=== PATIENT | male | born 2000 | race Caucasian/White ===

== ENCOUNTER 2018-08-08 22:04 | Emergency (ER) | payer BC ==
[2018-08-09 00:51] LABS: ADD MAN DIFF? NO
[2018-08-09] MEDS: ONDANSETRON 4 MG INJ IV (00:51)
[2018-08-09] MEDS: FAMOTIDINE 20 MG INJ IV (00:51)
[2018-08-09] MEDS: ACETAMINOPHEN 325 MG TAB PO (00:51)
[2018-08-09] MEDS: SOD CHLORIDE 0.9% 500 ML IV (00:51)
[2018-08-09] MEDS: SOD CHLORIDE 0.9% 1,000 ML IV (00:51)
[2018-08-09 00:52] LABS: WHITE BLOOD COUNT 10.1 10^3/ul (4.8-10.8)
[2018-08-09 00:53] LABS: ABNORMAL IP MESSAGE 1; BASOPHILS % 0.2 % (0.0-2.0); EOSINOPHILS % 0.4 % (0.0-7.0); HEMATOCRIT 51.4 % (42.0-52.0); HEMOGLOBIN 17.4 g/dl (14.0-18.0); LYMPHOCYTES # 0.4 10^3/ul (0.8-2.9); LYMPHOCYTES % 4.2 % (18.0-55.0); MEAN CORPUSCULAR HGB CONC 33.9 g/dl (32.0-37.0); MEAN CORPUSCULAR VOLUME 85.5 fl (72.0-104.0); MEAN PLATELET VOLUME 9.2 fl (7.4-10.4); MONOCYTE # 0.3 10^3/ul (0.3-0.9); MONOCYTES % 3.1 % (0.0-13.0); NEUTROPHIL # 9.2 10^3/ul (1.6-7.5); NEUTROPHILS % 91.8 % (30.0-74.0); PLATELET COUNT 220 10^3/UL (140-415); POSITIVE DIFF @See below; RED BLOOD COUNT 6.01 10^6/ul (4.70-6.10); RED CELL DISTRIBUTION WIDTH 12.6 % (11.5-14.5)
[2018-08-09 01:11] LABS: ADD UMIC YES; UR ASCORBIC ACID NEGATIVE (NEGATIVE); UR BILIRUBIN (Dip) NEGATIVE (NEGATIVE); UR BLOOD (Dip) NEGATIVE (NEGATIVE); UR CLARITY SLIGHTLY CLOUDY (CLEAR); UR COLOR YELLOW (YELLOW); UR GLUCOSE (Dip) NEGATIVE (NEGATIVE); UR KETONES (Dip) NEGATIVE (NEGATIVE); UR LEUKOCYTE ESTERASE (Dip) NEGATIVE Leu/ul (NEGATIVE); UR MUCUS FEW /HPF (NONE SEEN); UR NITRITE (Dip) NEGATIVE (NEGATIVE); UR RBC 0 /HPF (0-5); UR SPECIFIC GRAVITY (Dip) 1.034 (1.003-1.030); UR TOTAL PROTEIN (Dip) 1+ mg/dl (NEGATIVE); UR UROBILINOGEN (Dip) NEGATIVE (NEGATIVE); UR WBC 1 /HPF (0-5)
[2018-08-09 01:12] LABS: ALANINE AMINOTRANSFERASE 26 IU/L (13-69); ALBUMIN 5.3 g/dl (3.3-4.9); ALBUMIN/GLOBULIN RATIO 1.39; ALKALINE PHOSPHATASE 105 IU/L (42-121); ANION GAP 14 (5-13); ASPARTATE AMINO TRANSFERASE 33 IU/L (15-46); BILIRUBIN,INDIRECT 0.6 mg/dl (0-1.1); BILIRUBIN,TOTAL 0.6 mg/dl (0.2-1.3); BLOOD UREA NITROGEN 17 mg/dl (7-20); CARBON DIOXIDE 28 mmol/L (21-31); CHLORIDE 102 mmol/L (97-110); CREATININE 0.81 mg/dl (0.61-1.24); Estimated GFR > 60 mL/min (>60); GLUCOSE 91 mg/dl (70-220); LIPASE 57 U/L (23-300); POTASSIUM 4.1 mmol/L (3.5-5.1); SODIUM 144 mmol/L (135-144); TOTAL PROTEIN 9.1 g/dl (6.1-8.1)
== END 2018-08-09 02:55 | disposition home or self-care (01) ==
LOC: FTE 22:04
DX: R10.13 Epigastric pain (principal); R19.7 Diarrhea, unspecified
CPT/HCPCS: 36415; 76705; 80053; 81001; 83690; 85025; 96374; 96375; 99285-25

== ENCOUNTER 2019-03-09 13:54 | Emergency (ER) | payer BC ==
[2019-03-09] MEDS: LIDOCAINE 1% (MPF) 5 ML VIAL INJ (14:22)
== END 2019-03-09 15:33 | disposition home or self-care (01) ==
LOC: FTE 15:33
DX: L60.0 Ingrowing nail (principal)
CPT/HCPCS: 11765; 99282-25